=== PATIENT | female | born 1970 | race Caucasian/White ===

== ENCOUNTER 2020-12-03 02:34 | Emergency (ER) | payer OTHER ==
[2020-12-03 02:44] VITALS: RESP 17; TEMP 98.7
[2020-12-03] MEDS ORDERED: SODIUM CHLORIDE 0.9% 500 ML 500 ML IV STA (02:47)
[2020-12-03] MEDS ORDERED: SODIUM CHLORIDE 0.9% 1,000 ML IV STA ×2 (02:47)
[2020-12-03] MEDS ORDERED: ONDANSETRON 4 MG/2 ML VIAL IVP STA (02:47)
--- NOTE | 2020-12-03 02:48 | ED ---
Chest Pain HPI - General Chief Complaint: Chest Pain Stated Complaint: Chest Pain Time Seen by Provider: 12/03/20 02:36 Source: patient, EMS Mode of arrival: EMS Limitations: no limitations - Related Data Home Medications Medication Instructions Recorded Confirmed Ibuprofen [Motrin] 400 mg PO Q6HR PRN 07/20/15 01/31/16 Acetaminophen Tab [Tylenol Tab] 1,000 mg PO Q6HR PRN 01/31/16 01/31/16 Previous Rx's Medication Instructions Recorded Cyclobenzaprine [Flexeril] 10 mg PO TID #20 tab 01/31/16 Ibuprofen [Motrin] 600 mg PO Q6HR PRN #20 tab 01/31/16 Allergies Allergy/AdvReac Type Severity Reaction Status Date / Time sulfamethoxazole Allergy Itching Verified 01/31/16 13:58 [From Bactrim] trimethoprim [From Bactrim] Allergy Itching Verified 01/31/16 13:58 Review of Systems ROS Statement: Those systems with pertinent positive or pertinent negative responses have been documented in the HPI. ROS Other: All systems not noted in ROS Statement are negative. EKG Findings - EKG Comments: EKG Findings:: EKG is sinus tachycardia 102 PA 138 QRS 84 QTc 495 Past Medical History Additional Past Medical History / Comment(s): cellulitis History of Any Multi-Drug Resistant Organisms: None Reported Past Surgical History: Cholecystectomy Additional Past Surgical History / Comment(s): exploratory-abdomen Past Psychological History: ADD/ADHD, Bipolar, Depression Smoking Status: Current every day smoker Past Alcohol Use History: Abuse, Daily Past Drug Use History: Marijuana General Exam Limitations: no limitations Course Vital Signs 12/03/20 12/03/20 02:38 03:03 Temperature 98.7 F Pulse Rate 104 H 98 Respiratory 17 17 Rate Blood Pressure 87/63 111/76 O2 Sat by Pulse 95 97 Oximetry Disposition Clinical Impression: Postoperative pain, Atypical chest pain Disposition: HOME SELF-CARE Condition: Good Instructions (If sedation given, give patient instructions): Chest Pain (ED) Is patient prescribed a controlled substance at d/c from ED?: No Referrals: Minh Davidson MD [Primary Care Provider] - 1-2 days Jyoti Domínguez DO [Doctor of Osteopathic Medicine] - 1-2 days
[2020-12-03] MEDS ORDERED: HYDROmorphone 1 MG/ML 1 ML SYRINGE IVP STA (02:52)
[2020-12-03 03:23] LABS: Basophils % (A) 0 %; Eosinophils % (A) 0 %; HCT 32.4 % (34.0-46.0); HGB 11.1 gm/dL (11.4-16.0); Lymphocytes # (A) 1.4 k/uL (1.0-4.8); Lymphocytes % (A) 13 %; MCH 32.4 pg (25.0-35.0); MCHC 34.2 g/dL (31.0-37.0); MCV 94.6 fL (80.0-100.0); Mean Platelet Volume 6.8; Monocytes # (A) 0.8 k/uL (0-1.0); Monocytes % (A) 7 %; Neutrophils # (A) 8.1 k/uL (1.3-7.7); Neutrophils % (A) 77 %; Platelet Count 492 k/uL (150-450); RBC 3.42 m/uL (3.80-5.40); RDW 13.8 % (11.5-15.5); WBC 10.5 k/uL (3.8-10.6)
[2020-12-03 03:41] LABS: ALT 15 U/L (4-34); AST 27 U/L (14-36); African American GFR (CKD) >90 (>60 ml/min/1.73 sqM); Albumin 3.6 g/dL (3.5-5.0); Alcohol <10 mg/dL; Alkaline Phosphatase 89 U/L (38-126); Anion Gap 5 mmol/L; Blood Urea Nitrogen 15 mg/dL (7-17); Calcium 8.9 mg/dL (8.4-10.2); Carbon Dioxide 26 mmol/L (22-30); Chloride 102 mmol/L (98-107); Creatine Kinase 35 U/L (30-135); Glucose 95 mg/dL (74-99); Lipase 69 U/L (23-300); Magnesium 1.7 mg/dL (1.6-2.3); Non-African American GFR(CKD) >90 (>60 ml/min/1.73 sqM); Potassium 4.2 mmol/L (3.5-5.1); Sodium 133 mmol/L (137-145); Total Bilirubin 0.5 mg/dL (0.2-1.3); Total Protein 6.5 g/dL (6.3-8.2)
--- NOTE | 2020-12-03 03:50 | CT ---
EXAMINATION TYPE: CT angio chest DATE OF EXAM: 12/03/2020 COMPARISON: None HISTORY: Chest pain CT DLP: 864.1 mGycm Automated exposure control for dose reduction was used. CONTRAST: Performed with IV Contrast, patient injected with 100 mL of Isovue 370. Images obtained from the thoracic inlet to the diaphragm with IV contrast. There are 3-D post process ed images. There is mild subsegmental atelectasis at the lung bases. Heart size is normal. There is no pericardi al effusion. There is no pleural effusion. There is no evidence of a pulmonary mass. There is no mediastinal adenopathy. There are no hilar masses. There is normal contrast opacification of the thoracic aorta. There is no aneurysm or dissection. There is normal contrast opacification of the pulmonary arteries. There are no filling defects. The t horacic vertebra have normal spacing and alignment. Posterior elements are intact. Sternum is intact. Upper abdominal soft tissues are intact. IMPRESSION: Mild subsegmental atelectasis at the lung bases. No evidence of pulmonary embolism.
[2020-12-03 03:55] LABS: INR 0.9 (<1.2); Partial Thromboplastin Time 23.6 sec (22.0-30.0); Prothrombin Time 9.9 sec (9.0-12.0)
--- NOTE | 2020-12-03 04:05 | CT ---
EXAMINATION TYPE: CT abdomen pelvis w con DATE OF EXAM: 12/03/2020 COMPARISON: None. Images obtained from the diaphragm to the floor the pelvis with IV contrast. HISTORY: Chest pain CT DLP: 864.1 mGycm Automated exposure control for dose reduction was used. CONTRAST: Performed with IV Contrast, patient injected with 100 mL of Isovue 370. There is mild subsegmental atelectasis at the lung bases. Heart size is normal. There is no pericardi al effusion. Liver spleen stomach pancreas appear intact. Liver is large and measures 20 cm in length. Bile ducts are not dilated. There are clips from cholecystectomy. There is irregular 4 x 3 cm fluid collection a t the cholecystectomy site. There is no adrenal mass. Kidneys show satisfactory contrast opacification. There is no hydronephrosi s. Delayed images show normal renal excretion. There is no retroperitoneal adenopathy. Bladder disten ds smoothly. There is no inguinal hernia. There is no free fluid in the pelvis. Uterus is anteverted. Small bowel pattern is normal. Appendix is inferior and appears normal. There is no mesenteric edema. There is no ascites or free air. There is no bowel obstruction. The str uctures appear intact. There is no compression fracture. Bony pelvis and hip joints appear normal. Sa croiliac joints are normal. IMPRESSION: Mild subsegmental atelectasis at the lung bases. Hepatomegaly. There is some mixed density fluid accumulation at the cholecystectomy site. This has in termediate and low attenuation. No other fluid accumulation. Clinical significance is not clear. This could be a pseudocyst or bile leak or hematoma. According to the history patient had cholecystectomy one week ago. No significant fat stranding seen in the region to suggest an abscess.
[2020-12-03] MEDS ORDERED: LORazepam 2 MG/ML INJ IV STA (04:57)
[2020-12-03 05:03] VITALS: BP 104/67; PULSE 78
== END 2020-12-03 05:18 | disposition home or self-care (01) ==
LOC: EC 02:34
DX: R07.89 Other chest pain (principal); G89.18 Other acute postprocedural pain; F31.9 Bipolar disorder, unspecified; F90.9 Attention-deficit hyperactivity disorder, unspecified type; F17.200 Nicotine dependence, unspecified, uncomplicated; F12.90 Cannabis use, unspecified, uncomplicated; Z88.1 Allergy status to other antibiotic agents; Z88.2 Allergy status to sulfonamides; Z90.49 Acquired absence of other specified parts of digestive tract
CPT/HCPCS: 99285; 96374; 96375 ×2; 96361 ×2; 36415; 93005; 85379; 83880; 80053; 82550; 83690; 83735; 84484; 85025; 85610; 85730; 71275; 74177; G0480; J2060; J2405; J1170; Q9967; 80320

== ENCOUNTER → 2023-07-24 | Outpatient (CLI) | payer OTHER ==
[2023-07-24 15:49] LABS: Basophils # (A) 0.03 X 10*3/uL (0.00-0.10); Basophils % (A) 0.6 %; Eosinophils # (A) 0.01 X 10*3/uL (0.04-0.35); Eosinophils % (A) 0.2 %; HCT 38.1 % (37.2-46.3); HGB 12.8 g/dL (12.0-15.0); Lymphocytes # (A) 1.79 X 10*3/uL (0.90-5.00); Lymphocytes % (A) 34.4 %; MCH 30.4 pg (27.0-32.0); MCHC 33.6 g/dL (32.0-37.0); MCV 90.5 FL (80.0-97.0); Mean Platelet Volume 9.9 FL (9.5-12.2); Monocytes # (A) 0.49 X 10*3/uL (0.20-1.00); Monocytes % (A) 9.4 %; NRBC Per 100 WBC 0 X 10*3/uL (0.00-0.01); Neutrophils # (A) 2.87 X 10*3/uL (1.80-7.70); Platelet Count 308 X 10*3/uL (140-440); RBC 4.21 X 10*6/uL (4.10-5.20); RDW 12.9 % (11.5-14.5); WBC 5.21 X 10*3/uL (4.50-10.00)
[2023-07-24 15:58] LABS: BUN/Creat Ratio 17.25 Ratio (12.00-20.00); Blood Urea Nitrogen 13.8 mg/dL (9.0-27.0); Calcium 10.2 mg/dL (8.7-10.3); Carbon Dioxide 25.7 mmol/L (21.6-31.8); Chloride 101 mmol/L (96-109); Glucose 97 mg/dL (70-110); Potassium 4.4 mmol/L (3.5-5.5); Sodium 139 mmol/L (135-145)
== END | disposition home or self-care (01) ==
LOC: LABPAT 10:29
PROVIDERS: ATTEND Orthopaedic Surgery Hand Surgery
DX: Z01.812 Encounter for preprocedural laboratory examination (principal); S52.571A Other intraarticular fracture of lower end of right radius, initial encounter for closed fracture
CPT/HCPCS: 36415; 80048; 85025

== ENCOUNTER 2023-07-26 08:25 | Day surgery (SDC) | payer OTHER ==
[2023-07-24 13:29] VITALS: BMI 19.7
--- NOTE | 2023-07-24 20:44 | P.HPOR ---
History of Present Illness H&P Date: 07/24/23 Subjective: This is a 53 year old female that presents today for initial evaluation regarding a right wrist injury that occurred on July 15, 2023 when she slipped on wet floor in her kitchen and fell onto an outstretched hand. She was seen at [facility] where x-rays were taken and she was placed in a splint which she has been in since the injury. She is right hand dominant and denies any prior injury to this wrist in the past. Physical Examination: RUE: AIN/PIN/Radial/Ulnar/Median motor intact. Radial/Ulnar/Median SILT. 2+/4 Radial/Ulnar pulses palpated. 5/5 APB, 5/5 FDI. TTP over distal radius, range of motion limited due to pain. Imaging: X-Rays of the right wrist 3V taken in office today demonstrate an intra- articular distal radius fracture with 30 degrees of dorsal angulation Impression: 1.)Right distal radius fracture, intra-articular. Plan: Diagnosis and treatment options were discussed with the patient. I recommend surgical intervention in the form of a right distal radius ORIF due to the residual dorsal angulation and displacement seen on imaging today, she is agreeable. Risks and benefits of surgery including bleeding, infection, damage to surrounding tissue, need for further surgery, residual numbness were discussed and the patient wished to go forward with surgery. The patient was agreeable with this plan. CC: Minh Davidson MD -Kenji Blunt DO Orthopedic Hand/Upper Extremity Surgeon Past Medical History Past Medical History: COPD Additional Past Medical History / Comment(s): ENLARGED LIVER, ANEMIA History of Any Multi-Drug Resistant Organisms: None Reported Past Surgical History: Cholecystectomy Additional Past Surgical History / Comment(s): exploratory lap-abdomen Past Anesthesia/Blood Transfusion Reactions: No Reported Reaction Additional Past Anesthesia/Blood Transfusion Reaction / Comment(s): pt is very anxious and tearful regarding getting anesthesia Past Psychological History: ADD/ADHD, Anxiety, Bipolar, Depression Smoking Status: Current every day smoker Past Alcohol Use History: Occasional Past Drug Use History: Marijuana Additional Drug Use History / Comment(s): recovering cocaine user - Past Family History Mother Family Medical History: No Reported History Medications and Allergies Home Medications Medication Instructions Recorded Confirmed Type Acetaminophen-Codeine 300-30mg 1 - 2 tab PO Q4-6H PRN 07/24/23 07/24/23 History [Tylenol w/codeine #3] Albuterol Inhaler [Ventolin Hfa 1 - 2 puff INHALATION Q6H PRN 07/24/23 07/24/23 History Inhaler] Budesonide-Formot 160-4.5 Mcg 2 puff INHALATION BID 07/24/23 07/24/23 History [Symbicort 160-4.5 Mcg Inhaler] Buprenorphine HCl/Naloxone HCl 1 each SL TID PRN 07/24/23 07/24/23 History [Suboxone 4 mg-1 mg Sl Film] Cyclobenzaprine [Flexeril] 10 mg PO TID PRN 07/24/23 07/24/23 History Famotidine [Pepcid AC] 10 mg PO DAILY 07/24/23 07/24/23 History LORazepam [Ativan] 2 mg PO TID PRN 07/24/23 07/24/23 History Allergies Allergy/AdvReac Type Severity Reaction Status Date / Time sulfamethoxazole Allergy Itching Verified 07/24/23 12:39 [From Bactrim] trimethoprim [From Bactrim] Allergy Itching Verified 07/24/23 12:39 Physical Examination Osteopathic Statement: *. No significant issues noted on an osteopathic structural exam other than those noted in the History and Physical/Consult.
[~2023-07-26 08:25] MED LIST: HYDROmorphone 0.5 MG/0.5 ML SYRINGE IVP PRN; LIDOCAINE 1% (10MG/ML) FOR IV START INTRADERMA PRN; SCOPOLAMINE 1 MG/72 HR PATCH TRANSDERM ONE
[2023-07-26] MEDS: LACTATED RINGERS 1,000 ML IV SCH (09:06)
[2023-07-26] MEDS: ONDANSETRON 4 MG/2 ML VIAL IVP ONE ×2 (09:30→11:53)
[2023-07-26] MEDS: DEXAMETHASONE SOD PHOSPHATE 4 MG/ML 1 ML VIAL IV ONE (09:30)
[2023-07-26] MEDS: MIDAZOLAM 2 MG/2 ML VIAL IVP ONE (09:38)
[2023-07-26] MEDS: fentaNYL (PF) 50 MCG/ML 2 ML AMP IVP ONE (09:38)
[2023-07-26] MEDS: diphenhydrAMINE 50 MG/ML 1 ML VIAL ONE (09:40)
--- NOTE | 2023-07-26 09:57 | P.ANPRN ---
Procedure Note - Anesthesia - Nerve Block Performed Right Supraclavicular Single Time Out Performed: Yes Date of Procedure: 07/26/23 Procedure Start Time: Procedure Stop Time: Location of Patient: PreOp Indication: Acute Post-Operative Pain, Analgesia, Requested by Surgeon Sedation Type: Sedate with meaningful contact maintained Preparation: Sterile Prep Position: Sitting Catheter: None Needle Types: Pajunk Needle Gauge: 21 Ultrasound used to visualize needle placement: Yes Ultrasound used to observe medication spread: Yes Injectate: 0.5% Ropivacaine (see comment for volume) (Ropiv 20 ml+decadron 4mg) Blood Aspirated: No Pain Paresthesia on Injection Noted: No Resistance on Injection: Normal Image Stored and Saved: Yes Events: Uneventful and Well Tolerated
[2023-07-26 10:14] VITALS: TEMP 98.2
[2023-07-26] MEDS ORDERED: MIDAZOLAM 2 MG/2 ML VIAL ONE (10:17)
[2023-07-26] MEDS ORDERED: DEXAMETHASONE SOD PHOSPHATE 4 MG/ML 1 ML VIAL ONE (10:17)
[2023-07-26] MEDS ORDERED: KETAMINE HCL IN 0.9 % NACL 50 MG/5 ML SYRINGE ONE (10:17)
[2023-07-26] MEDS ORDERED: fentaNYL (PF) 50 MCG/ML 2 ML AMP ONE (10:17)
[2023-07-26] MEDS ORDERED: ROPIVACAINE 5 MG/ML 30 ML VIAL ONE (10:17)
[2023-07-26] MEDS ORDERED: PROPOFOL 10 MG/ML 20 ML VIAL IV ONE (10:17)
[2023-07-26] MEDS ORDERED: ONDANSETRON 4 MG/2 ML VIAL ONE (11:47)
--- NOTE | 2023-07-26 11:48 | P.OP ---
Date of Procedure: 07/26/23 Preoperative Diagnosis: Right intra-articular distal radius fracture Postoperative Diagnosis: Right intra-articular distal radius fracture Procedure(s) Performed: Open reduction internal fixation of right intra-articular distal radius fracture, 3 parts. Implants: Styrker Variax 2 distal radius plate, short, narrow. Anesthesia: [facility] Surgeon: Kenji Blunt Estimated Blood Loss (ml): 10 Pathology: none sent Condition: stable Disposition: PACU Description of Procedure: This is a 53 year old female who sustained a displaced intra-articular distal radius fracture and presents today for open reduction internal fixation of their right distal radius fracture. Risks and benefits of surgery were discussed with the patient including bleeding, damage to surrounding tissue, infection, need for further surgery as well as risks of anesthesia including pulmonary embolism and even and the patient wished to proceed with surgical intervention. The patients was seen in the pre-operative area by myself. Consent and H&P were completed and updated. The correct extremity was marked in the pre-operative area by myself and all other questions were answered. Operative Narrative: The patient was brought to the operating room by the department of anesthesia. They remained on the portable stretcher and a rolling hand table was brought to the side of the operative extremity. Pre-operative time out was performed indicating the correct patient, procedure and laterality. All in the room agreed. Pre-operative antibiotics were given prior to skin incision. The patient was then drifted off to sleep by the department of anesthesia. A nonsterile tourniquet was then applied to the operative extremity and the right upper extremity was then prepped and draped in normal sterile fashion. The operative extremity was the exsanguinated with an esmarch bandage and the tourniquet was inflated to 250mmHg. A longitudinal incision centered over the FCR tendon was made with a 15-blade scalpel. Blunt dissection was taken down to the FCR tendon sheath using Bovie cautery for meticulous hemostasis. The FCR sheath was opened with tenotomy scissors. The floor of the FCR sheath was then incised with a 15-blade scalpel and the FPL tendon and muscle belly was swept bluntly in an ulnar direction to reveal the pronator quadratus. Pronator quadratus was sharply incised with a 15-blade scalpel along the radial border of the distal radius, coming across transversely parallel to the joint at the level of the watershed line, radial artery was identified and protected. Periosteal elevator was then used to elevate the pronator quadratus off the distal radius from a radial to ulnar fashion. A [place] elevator was used to lever the distal piece back into place and free up the fractured fragments. A narrow width 3 hole Shabana Variax 2 titanium volar locking distal radius plate was chosen to fit the patients anatomy best. This was placed on the distal radius under direct visualization and the oblong hole was drilled and filled with a non-locking screw. The fracture was then reduced to the plate distally and a k-wire was placed in the ulnar most k-wire hole in the proximal row. Fluoroscopy was then utilized to confirm correct placement of plate in the radial/ulnar plane and distal k-wire placement was confirmed to be proximal to the subchondral bone on 20 degree elevated lateral view confirming extra-articular screw placement. Religion of radial height, inclination and volar tilt was achieved. The distal rows and radial styloid screw holes were then drilled and filled from ulnar to radial with locking screws. Attention was then brought to the proximal shaft screws. Proximal nonlocking and locking shaft screws were drilled, measured, and filled. The wrist joint was the ranged and full smooth flexion/extension with no crepitus appreciated. Final imaging was taken confirming extra-articular placement of distal screws at DRUJ and radiocarpal joint. The wound was then irrigated. Subcutaneous closure was performed with 4-0 monocryl followed by skin closure with 4-0 monocryl suture and steri strips. Sterile dressing consisting of adaptic, 4x4s, and a volar plaster splint was applied. Tourniquet was let down and the hand had immediate perfusion. The patient was then woken by the department of anesthesia and transferred to PACU in stable condition. Kenji Blunt D.O. Orthopedic Hand/Upper Extremity Surgeon
[2023-07-26 12:11] VITALS: BP 123/76; PULSE 91; RESP 19
== END 2023-07-26 12:11 | disposition home or self-care (01) ==
LOC: OR 08:25
PROVIDERS: ATTEND Orthopaedic Surgery Hand Surgery
DX: S52.571A Other intraarticular fracture of lower end of right radius, initial encounter for closed fracture (principal); F41.9 Anxiety disorder, unspecified; G89.18 Other acute postprocedural pain; J44.9 Chronic obstructive pulmonary disease, unspecified; F31.9 Bipolar disorder, unspecified; F17.200 Nicotine dependence, unspecified, uncomplicated; Z79.899 Other long term (current) drug therapy; Z79.51 Long term (current) use of inhaled steroids; Z88.1 Allergy status to other antibiotic agents; Z88.2 Allergy status to sulfonamides; Z90.49 Acquired absence of other specified parts of digestive tract; W01.0XXA Fall on same level from slipping, tripping and stumbling without subsequent striking against object, initial encounter
CPT/HCPCS: 64415; 25609; C1713; J2250; J1200; J1100; J0690; J2405; J3010; J2795; J2704

== ENCOUNTER → 2023-10-05 | Outpatient (CLI) | payer OTHER ==
--- NOTE | 2023-10-05 09:28 | FL ---
ESOPHOGRAM. HISTORY: Dysphagia Esophagram was performed per the air contrast technique. The patient swallowed barium and effervesce nt crystals without difficulty or delay. Esophageal peristalsis and motility appear to be within normal limits. There is no evidence for filling defect, mass or diverticulum. No hiatal hernia seen. Subsequently single contrast cervical esophagram was performed which fails demonstrate evidence for a spiration penetration or mass. Mild hypertrophy of the cricopharyngeus musculature at the C5-6 level. IMPRESSION: Mild hypertrophy of the cricopharyngeus musculature at the C5-6 level.
== END | disposition home or self-care (01) ==
LOC: RADUSWWP 07:50
PROVIDERS: ATTEND Family Medicine
DX: R13.10 Dysphagia, unspecified (principal); M47.812 Spondylosis without myelopathy or radiculopathy, cervical region
CPT/HCPCS: 74220

== ENCOUNTER 2024-01-08 09:41 | Emergency (ER) | payer OTHER ==
--- NOTE | 2024-01-08 10:24 | ED ---
General Adult HPI - General Chief complaint: ENT Stated complaint: tongue pain Time Seen by Provider: 01/08/24 10:00 Source: patient, RN notes reviewed Mode of arrival: ambulatory Limitations: no limitations - History of Present Illness Initial comments: Patient is a 53-year-old female presenting to the emergency department with concern for tongue pain. Symptoms have been present for a couple of months. Patient states discomfort is becoming severe and increases with oral intake. Patient has also had some left ear pain recently. Patient also has had some left-sided kidney pain recently which she has had several times previously. Patient has tried Magic mouthwash and Levaquin without improvement of symptoms. - Related Data Home Medications Medication Instructions Recorded Confirmed Acetaminophen-Codeine 300-30mg 1 - 2 tab PO Q4-6H PRN 07/24/23 07/26/23 [Tylenol w/codeine #3] Albuterol Inhaler [Ventolin Hfa 1 - 2 puff INHALATION Q6H PRN 07/24/23 07/26/23 Inhaler] Budesonide-Formot 160-4.5 Mcg 2 puff INHALATION BID 07/24/23 07/26/23 [Symbicort 160-4.5 Mcg Inhaler] Buprenorphine HCl/Naloxone HCl 1 each SL TID PRN 07/24/23 07/26/23 [Suboxone 4 mg-1 mg Sl Film] Cyclobenzaprine [Flexeril] 10 mg PO TID PRN 07/24/23 07/26/23 Famotidine [Pepcid AC] 10 mg PO DAILY 07/24/23 07/26/23 LORazepam [Ativan] 2 mg PO TID PRN 07/24/23 07/26/23 Previous Rx's Medication Instructions Recorded Nystatin 100,000 Unit/ml Susp 5 ml PO QID #200 ml 01/08/24 [Mycostatin Oral Susp] Allergies Allergy/AdvReac Type Severity Reaction Status Date / Time sulfamethoxazole Allergy Itching Verified 01/08/24 09:45 [From Bactrim] trimethoprim [From Bactrim] Allergy Itching Verified 01/08/24 09:45 Review of Systems ROS Statement: Those systems with pertinent positive or pertinent negative responses have been documented in the HPI. ROS Other: All systems not noted in ROS Statement are negative. Constitutional: Denies: fever Eyes: Denies: eye pain ENT: Reports: as per HPI, ear pain. Denies: dental pain, hearing loss, epistaxis Respiratory: Denies: dyspnea Cardiovascular: Denies: chest pain Gastrointestinal: Denies: abdominal pain Past Medical History Past Medical History: COPD, GERD/Reflux Additional Past Medical History / Comment(s): cellulitis History of Any Multi-Drug Resistant Organisms: None Reported Past Surgical History: Cholecystectomy Additional Past Surgical History / Comment(s): exploratory-abdomen Past Psychological History: ADD/ADHD, Bipolar, Depression Smoking Status: Current every day smoker, Light tobacco smoker Past Alcohol Use History: Rare Past Drug Use History: Marijuana General Exam Limitations: no limitations General appearance: alert, in no apparent distress Head exam: Present: normocephalic Eye exam: Present: normal appearance ENT exam: Present: TM's normal bilaterally, other (Tongue appears to have deep grooves anterior middle otherwise unremarkable. No mastoid tenderness or swelling.) Neck exam: Present: normal inspection. Absent: tenderness, lymphadenopathy Respiratory exam: Present: normal lung sounds bilaterally Cardiovascular Exam: Present: regular rate, normal rhythm GI/Abdominal exam: Present: soft, normal bowel sounds. Absent: distended, tenderness, guarding, rebound, rigid, pulsatile mass Extremities exam: Present: normal inspection Back exam: Present: CVA tenderness (L) (mild) Neurological exam: Present: alert, oriented X3, CN II-XII intact. Absent: motor sensory deficit Psychiatric exam: Present: normal affect, normal mood Skin exam: Present: normal color Course Vital Signs 01/08/24 01/08/24 09:45 11:49 Temperature 98.5 F 98 F Pulse Rate 105 H 64 Respiratory 18 18 Rate Blood Pressure 131/79 121/77 O2 Sat by Pulse 97 100 Oximetry Medical Decision Making - Medical Decision Making Was pt. sent in by a medical professional or institution (, PA, ONLINE MERCHANT, urgent care, hospital, or long-term...) When possible be specific @ -No Did you speak to anyone other than the patient for history (EMS, parent, family, police, friend...)? What history was obtained from this source @ -No Did you review nursing and triage notes (agree or disagree)? Why? @ -I reviewed and agree with nursing and triage notes Were old charts reviewed (outside hosp., previous admission, EMS record, old EKG, old radiological studies, urgent care reports/EKG's, long-term records)? Report findings @ -No old charts were reviewed Differential Diagnosis (chest pain, altered mental status, abdominal pain women, abdominal pain men, vaginal bleeding, weakness, fever, dyspnea, syncope, headache, dizziness, GI bleed, back pain, seizure, CVA, palpatations, mental health, musculoskeletal)? @ -Differential Abdominal Pain Women: Appendicitis, Cholecystitis, diverticulosis, ischemic bowel, pancreatitis, hepatitis, UTI, gastroenteritis, AAA, incarcerated hernia, bowel obstruction, constipation, inflammatory bowel, hepatitis, peptic ulcer disease, splenic infarction, perforated viscus, vulvitis, ovarian torsion, PID, kidney stone, placenta abruption, this is not meant to be an all-inclusive list EKG interpreted by me (3pts min.). @ -As above X-rays interpreted by me (1pt min.). @ -KUB shows no acute abnormality CT interpreted by me (1pt min.). @ -CT soft tissue neck including up to the ear does not reveal acute abnormality U/S interpreted by me (1pt. min.). @ -Ultrasound the kidneys without acute abnormality What testing was considered but not performed or refused? (CT, X-rays, U/S, labs)? Why? @ -None What meds were considered but not given or refused? Why? @ -None Did you discuss the management of the patient with other professionals (professionals i.e. , PA, ONLINE MERCHANT, lab, RT, psych nurse, social work associate, chief lock operator, teacher, safety officer, watch case polisher)? Give summary @ -No Was smoking cessation discussed for >3mins.? @ -No Was critical care preformed (if so, how long)? @ -No Were there social determinants of health that impacted care today? How? (Homelessness, low income, unemployed, alcoholism, drug addiction, transportation, low edu. Level, literacy, decrease access to med. care, correction, rehab)? @ -No Was there de-escalation of care discussed even if they declined (Discuss DNR or withdrawal of care, Hospice)? DNR status @ -No What co-morbidities impacted this encounter? (DM, HTN, Smoking, COPD, CAD, Cancer, CVA, ARF, Chemo, Hep., AIDS, mental health diagnosis, sleep apnea, morbid obesity)? @ -None Was patient admitted / discharged? Hospital course, mention meds given and route, prescriptions, significant lab abnormalities, going to OR and other pertinent info. @ -Patient presents with complaints of tongue pain with unclear etiology. No obvious reason on evaluation or exam. Patient will be discharged with close recommended follow-up with primary care physician and ENT. Patient updated. Patient will be tried and course of antifungals for potential fungal infection Undiagnosed new problem with uncertain prognosis? @ -Tongue pain of unclear etiology and uncertain prognosis Drug Therapy requiring intensive monitoring for toxicity (Heparin, Nitro, Insulin, Cardizem)? @ -No Were any procedures done? @ -No Diagnosis/symptom? @ -Tongue pain Acute, or Chronic, or Acute on Chronic? @ -Acute Uncomplicated (without systemic symptoms) or Complicated (systemic symptoms)? @ -Default Side effects of treatment? @ -No Exacerbation, Progression, or Severe Exacerbation? @ -No Poses a threat to life or bodily function? How? (Chest pain, [place], [place], pneumonia, PE, COPD, DKA, ARF, appy, cholecystitis, CVA, Diverticulitis, Homicidal, Suicidal, threat to staff... and all critical care pts) @ -No - Lab Data Result diagrams: 01/08/24 10:31 01/08/24 10:31 Lab Results 01/08/24 01/08/24 01/08/24 Range/Units 10:31 10:31 10:31 WBC 6.9 (3.8-10.6) k/uL RBC 4.48 (3.80-5.40) m/uL Hgb 13.5 (11.4-16.0) gm/dL Hct 41.4 (34.0-46.0) % MCV 92.4 (80.0-100.0) fL MCH 30.3 (25.0-35.0) pg MCHC 32.7 (31.0-37.0) g/dL RDW 13.3 (11.5-15.5) % Plt Count 313 (150-450) k/uL MPV 7.9 Neutrophils % 70 % Lymphocytes % 22 % Monocytes % 5 % Eosinophils % 1 % Basophils % 0 % Neutrophils # 4.8 (1.3-7.7) k/uL Lymphocytes # 1.5 (1.0-4.8) k/uL Monocytes # 0.3 (0-1.0) k/uL Eosinophils # 0.1 (0-0.7) k/uL Basophils # 0.0 (0-0.2) k/uL PT 10.6 (10.0-12.5) sec INR 1.0 (<1.2) APTT 24.2 (22.0-30.0) sec Sodium (137-145) mmol/L Potassium (3.5-5.1) mmol/L Chloride (98-107) mmol/L Carbon Dioxide (22-30) mmol/L Anion Gap mmol/L BUN (7-17) mg/dL Creatinine (0.52-1.04) mg/dL Est GFR (CKD-EPI)AfAm (>60 ml/min/1.73 sqM) Est GFR (CKD-EPI)NonAf (>60 ml/min/1.73 sqM) Glucose (74-99) mg/dL Calcium (8.4-10.2) mg/dL Total Bilirubin (0.2-1.3) mg/dL AST (14-36) U/L ALT (4-34) U/L Alkaline Phosphatase (38-126) U/L Total Protein (6.3-8.2) g/dL Albumin (3.5-5.0) g/dL Amylase (30-110) U/L Lipase (23-300) U/L Urine Color Colorless Urine Appearance Clear (Clear) Urine pH 6.5 (5.0-8.0) Ur Specific Alexander 1.005 (1.001-1.035) Urine Protein Negative (Negative) Urine Glucose (UA) Negative (Negative) Urine Ketones Negative (Negative) Urine Blood Negative (Negative) Urine Nitrite Negative (Negative) Urine Bilirubin Negative (Negative) Urine Urobilinogen <2.0 (<2.0) mg/dL Ur Leukocyte Esterase Negative (Negative) 01/08/24 Range/Units 10:31 WBC (3.8-10.6) k/uL RBC (3.80-5.40) m/uL Hgb (11.4-16.0) gm/dL Hct (34.0-46.0) % MCV (80.0-100.0) fL MCH (25.0-35.0) pg MCHC (31.0-37.0) g/dL RDW (11.5-15.5) % Plt Count (150-450) k/uL MPV Neutrophils % % Lymphocytes % % Monocytes % % Eosinophils % % Basophils % % Neutrophils # (1.3-7.7) k/uL Lymphocytes # (1.0-4.8) k/uL Monocytes # (0-1.0) k/uL Eosinophils # (0-0.7) k/uL Basophils # (0-0.2) k/uL PT (10.0-12.5) sec INR (<1.2) APTT (22.0-30.0) sec Sodium 138 (137-145) mmol/L Potassium 4.6 (3.5-5.1) mmol/L Chloride 108 H (98-107) mmol/L Carbon Dioxide 28 (22-30) mmol/L Anion Gap 2 mmol/L BUN 16 (7-17) mg/dL Creatinine 0.72 (0.52-1.04) mg/dL Est GFR (CKD-EPI)AfAm >90 (>60 ml/min/1.73 sqM) Est GFR (CKD-EPI)NonAf >90 (>60 ml/min/1.73 sqM) Glucose 91 (74-99) mg/dL Calcium 9.7 (8.4-10.2) mg/dL Total Bilirubin 0.5 (0.2-1.3) mg/dL AST 20 (14-36) U/L ALT 10 (4-34) U/L Alkaline Phosphatase 54 (38-126) U/L Total Protein 7.3 (6.3-8.2) g/dL Albumin 4.5 (3.5-5.0) g/dL Amylase 52 (30-110) U/L Lipase 94 (23-300) U/L Urine Color Urine Appearance (Clear) Urine pH (5.0-8.0) Ur Specific Alexander (1.001-1.035) Urine Protein (Negative) Urine Glucose (UA) (Negative) Urine Ketones (Negative) Urine Blood (Negative) Urine Nitrite (Negative) Urine Bilirubin (Negative) Urine Urobilinogen (<2.0) mg/dL Ur Leukocyte Esterase (Negative) Disposition Clinical Impression: Tongue pain Disposition: HOME SELF-CARE Condition: Stable Instructions (If sedation given, give patient instructions): Earache (ED) Additional Instructions: Prescription sent to pharmacy. Please do follow-up with your primary care physician in the next couple of days for recheck. Please also follow-up with ENT in the next couple of days for recheck, numbers provided. Return for increased pain, unable to tolerate oral intake, fevers, swelling, worsening or changing symptoms or any other concerns Prescriptions: Nystatin 100,000 Unit/ml Susp [Mycostatin Oral Susp] 5 ml PO QID #200 ml Is patient prescribed a controlled substance at d/c from ED?: No Referrals: Minh Davidson MD [Primary Care Provider] - 1-2 days Time of Disposition: 12:38
[2024-01-08] MEDS: SODIUM CHLORIDE 0.9% 1,000 ML IV STA (10:36)
[2024-01-08 10:43] LABS: Basophils % (A) 0 %; Eosinophils # (A) 0.1 k/uL (0-0.7); Eosinophils % (A) 1 %; HCT 41.4 % (34.0-46.0); HGB 13.5 gm/dL (11.4-16.0); Lymphocytes # (A) 1.5 k/uL (1.0-4.8); Lymphocytes % (A) 22 %; MCH 30.3 pg (25.0-35.0); MCHC 32.7 g/dL (31.0-37.0); MCV 92.4 fL (80.0-100.0); Mean Platelet Volume 7.9; Monocytes # (A) 0.3 k/uL (0-1.0); Monocytes % (A) 5 %; Neutrophils # (A) 4.8 k/uL (1.3-7.7); Neutrophils % (A) 70 %; Platelet Count 313 k/uL (150-450); RBC 4.48 m/uL (3.80-5.40); RDW 13.3 % (11.5-15.5); WBC 6.9 k/uL (3.8-10.6)
[2024-01-08] MEDS: LORazepam 2 MG/ML INJ IV STA (10:57)
[2024-01-08] MEDS: KETOROLAC 15 MG/ML 1 ML VIAL IVP STA (10:59)
[2024-01-08 11:09] LABS: Partial Thromboplastin Time 24.2 sec (22.0-30.0); Prothrombin Time 10.6 sec (10.0-12.5)
--- NOTE | 2024-01-08 11:19 | XR ---
EXAMINATION TYPE: XR KUB DATE OF EXAM: 01/08/2024 COMPARISON: CT abdomen and pelvis 12/03/2020 HISTORY: Abdominal pain TECHNIQUE: Single upright KUB image of the abdomen is obtained FINDINGS: Small bowel demonstrates no evidence for dilatation or air fluid levels. Gas and fecal material is seen in non-distended colon. No convincing evidence for pneumoperitoneum. No unusual calcifications. Cholecystectomy clips in the right upper quadrant. The lung bases are clear. The osseous structures are intact. IMPRESSION: Overall nonobstructive bowel gas pattern. [facility], , 01/08/2024 11:17 AM
[2024-01-08 11:21] LABS: Appearance,Urine Clear (Clear); Bilirubin,Urine Negative (Negative); Blood,Urine Negative (Negative); Color,Urine Colorless; Glucose,Urine (UA) Negative (Negative); Ketones,Urine Negative (Negative); Leukocyte Esterase,Urine Negative (Negative); Nitrite,Urine Negative (Negative); PH, Urine 6.5 (5.0-8.0); Protein,Urine Negative (Negative); Specific Gravity,Urine 1.005 (1.001-1.035); Urobilinogen,Urine <2.0 mg/dL (<2.0)
[2024-01-08 11:29] LABS: ALT 10 U/L (4-34); AST 20 U/L (14-36); African American GFR (CKD) >90 (>60 ml/min/1.73 sqM); Albumin 4.5 g/dL (3.5-5.0); Alkaline Phosphatase 54 U/L (38-126); Amylase 52 U/L (30-110); Anion Gap 2 mmol/L; Blood Urea Nitrogen 16 mg/dL (7-17); Calcium 9.7 mg/dL (8.4-10.2); Carbon Dioxide 28 mmol/L (22-30); Chloride 108 mmol/L (98-107); Glucose 91 mg/dL (74-99); Lipase 94 U/L (23-300); Non-African American GFR(CKD) >90 (>60 ml/min/1.73 sqM); Potassium 4.6 mmol/L (3.5-5.1); Sodium 138 mmol/L (137-145); Total Bilirubin 0.5 mg/dL (0.2-1.3); Total Protein 7.3 g/dL (6.3-8.2)
--- NOTE | 2024-01-08 11:44 | CT ---
EXAMINATION TYPE: CT soft tissue neck w con CT DLP: 188.4 mGycm, Automated exposure control for dose reduction was used. DATE OF EXAM: 01/08/2024 11:34 AM COMPARISON: None. CLINICAL INDICATION:Female, 53 years old with history of tongue and ear pain; PHH, tongue and ear diane n TECHNIQUE: Standard enhanced CT of the neck following intravenous administration of 80 cc of Isovue 3 00. Axial sections with coronal and sagittal reformats were obtained. FINDINGS: Brain: Visualized portions are grossly unremarkable. Orbits: Unremarkable Sinuses: Grossly unremarkable. Suprahyoid Neck: The oropharynx, oral cavity, parapharyngeal and retropharyngeal spaces are clear and symmetric. The nasopharynx is unremarkable. Infrahyoid Neck: The larynx, hypopharynx, and supraglottic area are clear and symmetric. Parotid Glands: Unremarkable. Submandibular Glands: Unremarkable. Musculoskeletal: No acute osseous pathology. Degenerative disc disease identified at C5-C7 with disc space narrowing, endplate sclerosis, vacuum disc disease, and anterior osteophytosis. Lymph nodes: Few nonenlarged lymph nodes are seen along both anterior chains of the neck. Vascular structures: Visualized major arteries are patent without evidence of aneurysm. Thoracic Inlet/airway: Airway is patent. The lung apices are clear. Mild centrilobular emphysematous changes. Minimal biapical pleural-parenchymal scarring. Soft tissues/Thyroid: Thyroid and remainder of the soft tissues are unremarkable. Other: none. IMPRESSION 1. No CT evidence for significant abnormality. 2. Pulmonary emphysematous changes. [facility], , 01/08/2024 11:41 AM
[2024-01-08 11:50] VITALS: TEMP 98
--- NOTE | 2024-01-08 12:10 | US ---
EXAMINATION TYPE: US kidneys/renal and bladder DATE OF EXAM: 01/08/2024 COMPARISON: CT: 12/03/20 CLINICAL INDICATION: Female, 53 years old with history of pain; left flank pain TECHNIQUE: Grayscale imaging of the bilateral kidneys and urinary bladder: FINDINGS: EXAM MEASUREMENTS: Right Kidney: 10.3 x 4.4 x 3.2 cm Left Kidney: 9.6 x 4.6 x 4.0 cm Right Kidney: No hydronephrosis or masses seen Left Kidney: No hydronephrosis or masses seen Bladder: wnl Bilateral Jets seen: No There is no evidence for hydronephrosis at this point in time. No nephrolithiasis is seen. Cortical medullary differentiation is maintained bilaterally. No masses are identified. The urinary bladder is anechoic. Ureteral jets are not identified. IMPRESSION: No hydronephrosis or nephrolithiasis. [facility], , 01/08/2024 12:08 PM
[2024-01-08 12:51] VITALS: BP 107/78; PULSE 63; RESP 16
== END 2024-01-08 12:51 | disposition home or self-care (01) ==
LOC: EC 09:41
DX: K14.6 Glossodynia (principal); F17.200 Nicotine dependence, unspecified, uncomplicated; Z88.1 Allergy status to other antibiotic agents; Z88.2 Allergy status to sulfonamides
CPT/HCPCS: 36415; 80053; 82150; 83690; 85025; 85610; 85730; 81003; 74018; 76770; 70491; 99284; 96374; 96375; 96361; J2060; J1885; Q9967

== ENCOUNTER 2024-01-26 08:54 | Observation (INO) | payer OTHER ==
--- NOTE | 2024-01-26 09:44 | ED ---
General Adult HPI - General Chief complaint: Neuro Symptoms/Deficit Stated complaint: Facial numbness,L arm pain Time Seen by Provider: 01/26/24 09:04 Source: patient, RN notes reviewed Mode of arrival: wheelchair Limitations: no limitations - History of Present Illness Initial comments: Patient is a 53-year-old female present to the emergency department with concerns with problems with her tongue. Patient states this has been occurring for around 3 months. Patient has seen her doctor and has seen ENT and not received a diagnosis. Patient has difficulty eating and drinking and pain of her tongue. Patient states there is also pain on the entire left side of her body as well as somewhat the majority of her trunk. Symptoms are constant and persistent. Patient forgot to take her anxiety medication this morning. - Related Data Home Medications Medication Instructions Recorded Confirmed Acetaminophen-Codeine 300-30mg 1 - 2 tab PO Q4-6H PRN 07/24/23 07/26/23 [Tylenol w/codeine #3] Albuterol Inhaler [Ventolin Hfa 1 - 2 puff INHALATION Q6H PRN 07/24/23 07/26/23 Inhaler] Budesonide-Formot 160-4.5 Mcg 2 puff INHALATION BID 07/24/23 07/26/23 [Symbicort 160-4.5 Mcg Inhaler] Buprenorphine HCl/Naloxone HCl 1 each SL TID PRN 07/24/23 07/26/23 [Suboxone 4 mg-1 mg Sl Film] Cyclobenzaprine [Flexeril] 10 mg PO TID PRN 07/24/23 07/26/23 Famotidine [Pepcid AC] 10 mg PO DAILY 07/24/23 07/26/23 LORazepam [Ativan] 2 mg PO TID PRN 07/24/23 07/26/23 Previous Rx's Medication Instructions Recorded Nystatin 100,000 Unit/ml Susp 5 ml PO QID #200 ml 01/08/24 [Mycostatin Oral Susp] Allergies Allergy/AdvReac Type Severity Reaction Status Date / Time sulfamethoxazole Allergy Itching Verified 01/26/24 09:00 [From Bactrim] trimethoprim [From Bactrim] Allergy Itching Verified 01/26/24 09:00 Review of Systems ROS Statement: Those systems with pertinent positive or pertinent negative responses have been documented in the HPI. ROS Other: All systems not noted in ROS Statement are negative. Constitutional: Denies: fever Eyes: Denies: eye pain ENT: Reports: as per HPI. Denies: ear pain Respiratory: Denies: cough Musculoskeletal: Reports: as per HPI Psychiatric: Reports: anxiety Past Medical History Past Medical History: COPD, GERD/Reflux Additional Past Medical History / Comment(s): cellulitis History of Any Multi-Drug Resistant Organisms: None Reported Past Surgical History: Cholecystectomy Additional Past Surgical History / Comment(s): exploratory-abdomen Past Psychological History: ADD/ADHD, Bipolar, Depression Smoking Status: Current every day smoker, Light tobacco smoker Past Alcohol Use History: Rare Past Drug Use History: Marijuana General Exam Limitations: no limitations General appearance: alert, in no apparent distress Head exam: Present: normocephalic Eye exam: Present: normal appearance, PERRL, EOMI ENT exam: Present: normal exam, normal oropharynx Neck exam: Present: normal inspection. Absent: tenderness, meningismus Respiratory exam: Present: normal lung sounds bilaterally Cardiovascular Exam: Present: tachycardia GI/Abdominal exam: Present: soft. Absent: tenderness Extremities exam: Present: normal inspection Neurological exam: Present: alert, oriented X3, CN II-XII intact. Absent: motor sensory deficit Psychiatric exam: Present: anxious Skin exam: Present: normal color Course Vital Signs 01/26/24 01/26/24 01/26/24 09:00 09:29 10:10 Temperature 98.2 F Pulse Rate 111 H 106 H 79 Respiratory 20 18 20 Rate Blood Pressure 167/121 122/86 101/77 O2 Sat by Pulse 98 98 97 Oximetry 01/26/24 01/26/24 11:25 12:27 Temperature 98.2 F Pulse Rate 83 82 Respiratory 18 18 Rate Blood Pressure 108/68 96/72 O2 Sat by Pulse 95 97 Oximetry EKG Findings - EKG Results: EKG: interpreted by ERMD, sinus rhythm, normal axis, normal QRS, normal ST/T Medical Decision Making - Medical Decision Making Was pt. sent in by a medical professional or institution (, PA, CRANIOLOGIST, urgent care, hospital, or senior living...) When possible be specific @ -No Did you speak to anyone other than the patient for history (EMS, parent, family, police, friend...)? What history was obtained from this source @ -No Did you review nursing and triage notes (agree or disagree)? Why? @ -I reviewed and agree with nursing and triage notes Were old charts reviewed (outside hosp., previous admission, EMS record, old EKG, old radiological studies, urgent care reports/EKG's, senior living records)? Report findings @ -Previous visit and imaging reviewed Differential Diagnosis (chest pain, altered mental status, abdominal pain women, abdominal pain men, vaginal bleeding, weakness, fever, dyspnea, syncope, headache, dizziness, GI bleed, back pain, seizure, CVA, palpatations, mental health, musculoskeletal)? @ -Differential Weakness: Hypoglycemia, shock, sepsis, hyponatremia, anemia, infection, [place], ETOH, adverse medicine reaction, overdose, stroke, this is not meant to be an all-inclusive list. EKG interpreted by me (3pts min.). @ -As above X-rays interpreted by me (1pt min.). @ -None done CT interpreted by me (1pt min.). @ -None done U/S interpreted by me (1pt. min.). @ -None done What testing was considered but not performed or refused? (CT, X-rays, U/S, labs)? Why? @ -Considered imaging however patient did have this done previously What meds were considered but not given or refused? Why? @ -None Did you discuss the management of the patient with other professionals (professionals i.e. , PA, CRANIOLOGIST, lab, RT, psych nurse, social services counselor, mounter hand, teacher, delinquency prevention officer, casey saw operator)? Give summary @ -Patient is concerned that symptoms have been occurring for months and is not comfortable discharge home. I did discuss the case with Dr. Davidson who states he would admit the patient Was smoking cessation discussed for >3mins.? @ -No Was critical care preformed (if so, how long)? @ -No Were there social determinants of health that impacted care today? How? (Homelessness, low income, unemployed, alcoholism, drug addiction, transportation, low edu. Level, literacy, decrease access to med. care, senior living, rehab)? @ -No Was there de-escalation of care discussed even if they declined (Discuss DNR or withdrawal of care, Hospice)? DNR status @ -No What co-morbidities impacted this encounter? (DM, HTN, Smoking, COPD, CAD, Cancer, CVA, ARF, Chemo, Hep., AIDS, mental health diagnosis, sleep apnea, morbid obesity)? @ -None Was patient admitted / discharged? Hospital course, mention meds given and route, prescriptions, significant lab abnormalities, going to OR and other pertinent info. @ -Patient presents with tongue and some facial and other discomfort that has progressed over months. Patient will be admitted, admission orders written Undiagnosed new problem with uncertain prognosis? @ -Unclear diagnosis with uncertain prognosis Drug Therapy requiring intensive monitoring for toxicity (Heparin, Nitro, Insulin, Cardizem)? @ -No Were any procedures done? @ -No Diagnosis/symptom? @ -Facial pain Acute, or Chronic, or Acute on Chronic? @ -Acute Uncomplicated (without systemic symptoms) or Complicated (systemic symptoms)? @ -Default Side effects of treatment? @ -No Exacerbation, Progression, or Severe Exacerbation? @ -No Poses a threat to life or bodily function? How? (Chest pain, [place], [place], pneumonia, PE, COPD, DKA, ARF, appy, cholecystitis, CVA, Diverticulitis, Homicidal, Suicidal, threat to staff... and all critical care pts) @ -No - Lab Data Result diagrams: 01/26/24 09:44 01/26/24 09:44 Lab Results 01/26/24 01/26/24 01/26/24 Range/Units 09:44 09:44 09:44 WBC 7.8 (3.8-10.6) k/uL RBC 4.69 (3.80-5.40) m/uL Hgb 14.3 (11.4-16.0) gm/dL Hct 43.4 (34.0-46.0) % MCV 92.5 (80.0-100.0) fL MCH 30.5 (25.0-35.0) pg MCHC 32.9 (31.0-37.0) g/dL RDW 12.5 (11.5-15.5) % Plt Count 369 (150-450) k/uL MPV 7.8 Neutrophils % 73 % Lymphocytes % 19 % Monocytes % 5 % Eosinophils % 2 % Basophils % 0 % Neutrophils # 5.6 (1.3-7.7) k/uL Lymphocytes # 1.5 (1.0-4.8) k/uL Monocytes # 0.4 (0-1.0) k/uL Eosinophils # 0.1 (0-0.7) k/uL Basophils # 0.0 (0-0.2) k/uL Sodium 140 (137-145) mmol/L Potassium 4.5 (3.5-5.1) mmol/L Chloride 109 H (98-107) mmol/L Carbon Dioxide 23 (22-30) mmol/L Anion Gap 8 mmol/L BUN 11 (7-17) mg/dL Creatinine 0.68 (0.52-1.04) mg/dL Est GFR (CKD-EPI)AfAm >90 (>60 ml/min/1.73 sqM) Est GFR (CKD-EPI)NonAf >90 (>60 ml/min/1.73 sqM) Glucose 99 (74-99) mg/dL Calcium 10.3 H (8.4-10.2) mg/dL Magnesium 2.0 (1.6-2.3) mg/dL Total Bilirubin 0.6 (0.2-1.3) mg/dL AST 20 (14-36) U/L ALT 12 (4-34) U/L Alkaline Phosphatase 73 (38-126) U/L Troponin I <0.012 (0.000-0.034) ng/mL Total Protein 8.4 H (6.3-8.2) g/dL Albumin 5.2 H (3.5-5.0) g/dL Disposition Clinical Impression: Facial pain Disposition: ADMITTED IP TO THIS HOSP Is patient prescribed a controlled substance at d/c from ED?: No Referrals: Minh Davidson MD [Primary Care Provider] - 1-2 days Time of Disposition: 12:46
[2024-01-26] MEDS: SODIUM CHLORIDE 0.9% 1,000 ML IV STA (09:48)
[2024-01-26] MEDS: KETOROLAC 15 MG/ML 1 ML VIAL IVP STA (09:49)
[2024-01-26] MEDS: ONDANSETRON 4 MG/2 ML VIAL IVP STA (09:50)
[2024-01-26] MEDS: LORazepam 2 MG/ML INJ IV STA (09:52)
[2024-01-26 10:01] LABS: Basophils % (A) 0 %; Eosinophils # (A) 0.1 k/uL (0-0.7); Eosinophils % (A) 2 %; HCT 43.4 % (34.0-46.0); HGB 14.3 gm/dL (11.4-16.0); Lymphocytes # (A) 1.5 k/uL (1.0-4.8); Lymphocytes % (A) 19 %; MCH 30.5 pg (25.0-35.0); MCHC 32.9 g/dL (31.0-37.0); MCV 92.5 fL (80.0-100.0); Mean Platelet Volume 7.8; Monocytes # (A) 0.4 k/uL (0-1.0); Monocytes % (A) 5 %; Neutrophils # (A) 5.6 k/uL (1.3-7.7); Neutrophils % (A) 73 %; Platelet Count 369 k/uL (150-450); RBC 4.69 m/uL (3.80-5.40); RDW 12.5 % (11.5-15.5); WBC 7.8 k/uL (3.8-10.6)
[2024-01-26] MEDS: ACETAMINOPHEN IV (For NPO) 1,000 MG in EMPTY BAG 1 BAG IVPB STA (10:09)
[2024-01-26 10:15] LABS: ALT 12 U/L (4-34); AST 20 U/L (14-36); African American GFR (CKD) >90 (>60 ml/min/1.73 sqM); Albumin 5.2 g/dL (3.5-5.0); Alkaline Phosphatase 73 U/L (38-126); Anion Gap 8 mmol/L; Blood Urea Nitrogen 11 mg/dL (7-17); Calcium 10.3 mg/dL (8.4-10.2); Carbon Dioxide 23 mmol/L (22-30); Chloride 109 mmol/L (98-107); Glucose 99 mg/dL (74-99); Non-African American GFR(CKD) >90 (>60 ml/min/1.73 sqM); Potassium 4.5 mmol/L (3.5-5.1); Sodium 140 mmol/L (137-145); Total Bilirubin 0.6 mg/dL (0.2-1.3); Total Protein 8.4 g/dL (6.3-8.2)
--- NOTE | 2024-01-26 10:17 | XR ---
2 view chest HISTORY: Weakness COMPARISON: 02/16/2015 TECHNIQUE: PA and lateral views chest obtained. FINDINGS: The lungs are clear of consolidative, interstitial or masslike opacity. There is hyperinflation of eva ngs and flattening the diaphragms consistent with COPD. There is no pleural effusion, pleural thickening or pneumothorax. The heart, pulmonary vasculature, mediastinum and oma are within normal limits. The osseous structures and soft tissues of the thorax are intact. IMPRESSION: 1. No acute cardiopulmonary disease. 2. COPD. [facility], , 01/26/2024 10:15 AM
[2024-01-26] MEDS ORDERED: NALOXONE 0.4 MG/ML 1 ML VIAL IV PRN (12:46)
[2024-01-26] MEDS ORDERED: ONDANSETRON 4 MG/2 ML VIAL IVP PRN (12:46)
[2024-01-26] MEDS ORDERED: LORazepam 2 MG/ML INJ IV PRN (12:48)
[2024-01-26] MEDS: GABAPENTIN 100 MG CAP PO SCH (13:01)
[2024-01-26] MEDS: SODIUM CHLORIDE 0.9% 1,000 ML IV SCH (13:02)
[2024-01-26] MEDS: KETOROLAC 15 MG/ML 1 ML VIAL IVP PRN (13:04)
[2024-01-26] MEDS ORDERED: CYCLOBENZAPRINE 10 MG TAB PO PRN (17:07)
[2024-01-26] MEDS ORDERED: ONDANSETRON 4 MG TAB PO PRN (17:07)
--- NOTE | 2024-01-26 19:10 | CT ---
EXAMINATION TYPE: CT soft tissue neck wo con DATE OF EXAM: 01/26/2024 6:45 PM COMPARISON: Recent CT neck study dated 01/08/2024.. CLINICAL INDICATION: Female, 53 years old with history of tongue lesion?; PHH, Left side facial swell ing and pain from left eye down to left side of neck x 1 day 1. TECHNIQUE: Standard enhanced CT of the neck. Axial sections with coronal and sagittal reformats were obtained. CT DLP: 290.1 mGycm, Automated exposure control for dose reduction was used. FINDINGS: Brain: Visualized portions are grossly unremarkable. Orbits: Unremarkable Sinuses: Mucosal thickening of the left maxillary sinus with air-fluid level suggesting acute etiolog y. Scattered ethmoid air cell mucosal thickening. Spaces of the neck: Clear and symmetric. Musculoskeletal: No acute osseous pathology. Cervical spine degenerative changes. Lymph nodes: Multiple nonenlarged lymph nodes are seen along both anterior chains of the neck. Vascular structures: Not well evaluated given lack of IV contrast. Thoracic Inlet/airway: Airway is p atent. The lung apices are clear. Soft tissues/Thyroid: Thyroid and remainder of the soft tissues are unremarkable. Other: none. Partially visualized Emphysema in the lung apices. IMPRESSION 1. No evidence for a significant acute abnormality in the neck. 2. Paranasal sinus disease as above. [facility], , 01/26/2024 7:08 PM
[2024-01-26] MEDS: PANTOPRAZOLE 40 MG TABLET PO SCH (22:04)
[2024-01-26] MEDS: MELOXICAM 7.5 MG TAB PO SCH (22:05)
[2024-01-26] MEDS: NON FORMULARY DRUG (Buprenorphine Hcl/Naloxone Hcl [Suboxone 4 Mg-1 Mg Sl Film] 1 EACH Fil SUBLINGUAL SCH (22:06)
[2024-01-26] MEDS: ALPRAZolam 1 MG TAB PO SCH (22:09)
[2024-01-27 07:24] VITALS: BP 108/72; PULSE 72; RESP 16; TEMP 97.4
[2024-01-27] MEDS: ALBUTEROL HFA INHALER INHALATION PRN (08:15)
[2024-01-27] MEDS: CYANOCOBALAMIN 500 MCG TAB PO SCH (08:43)
[2024-01-27] MEDS ORDERED: ETODOLAC 400 MG TAB PO SCH (21:00)
--- NOTE | 2024-01-28 04:14 | HP ---
HISTORY AND PHYSICAL CHIEF COMPLAINT: Pain in the tongue, face, and neck. 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 She is definitely hypochondriacal. She is constantly complaining of various symptoms; pain, depression, and shortness of breath. She presented to the emergency room with pain and swelling in her tongue, neck, and in her chest. She is convinced that she has amyloidosis. Her tongue is somewhat abnormal in appearance. She has apparently been going around to different doctors including Ear, Nose, Throat doctor in [place]. She has been given no definite diagnoses. REVIEW OF SYSTEMS: Otherwise unremarkable. She has had no fever, chills, headache, chest pain, shortness of breath, abdominal pain, nausea, vomiting, melena, hematochezia, renal failure, hematuria, frequency, urgency, etc. PAST MEDICAL HISTORY: Otherwise unremarkable or noncontributory. FAMILY HISTORY: Otherwise unremarkable or noncontributory. PERSONAL AND SOCIAL HISTORY: Otherwise unremarkable or noncontributory. PHYSICAL EXAMINATION: Her tongue does seem to have a somewhat glossy and atrophic appearance to the mucosa. Lymph nodes intact and not enlarged. IMPRESSION: 1. Pain in the neck and tongue area. 2. Chronic obstructive pulmonary disease. 3. History of depression. PLAN: 1. Bed rest. 2. IV fluids. 3. CT of the tongue and neck. MMODL / IJN: [id number] /
--- NOTE | 2024-01-28 11:29 | DS ---
DISCHARGE SUMMARY CHIEF COMPLAINT: Pain in the tongue and neck. HISTORY OF PRESENT ILLNESS AND PHYSICAL EXAM: Details of this lady's history and physical can be found in the initial workup. LABORATORY STUDIES: While she was in the hospital, she had laboratory studies, details of which could be found in the laboratory section of her chart. COURSE IN HOSPITAL: After admission, she was placed on bedrest and started on intravenous fluids and underwent a CT of the tongue and neck, which was normal. It was felt that she did not need to be in the hospital any longer and that she could go home and be worked up further as an outpatient. FINAL DIAGNOSES: 1. Pain and swelling in the tongue and neck. 2. Chronic obstructive pulmonary disease. 3. History of narcotic abuse. OPERATIONS: None. CONSULTATION: None. DESTINY / WILFREDO: [id number] /
== END 2024-01-27 12:32 | disposition home or self-care (01) ==
LOC: EC 08:54 → 6NMEDSUR 12:47
PROVIDERS: ADMIT Family Medicine; ATTEND Family Medicine
DX: R22.1 Localized swelling, mass and lump, neck (principal); K14.6 Glossodynia; M54.2 Cervicalgia; M79.602 Pain in left arm; J44.9 Chronic obstructive pulmonary disease, unspecified; F31.9 Bipolar disorder, unspecified; F90.9 Attention-deficit hyperactivity disorder, unspecified type; F17.200 Nicotine dependence, unspecified, uncomplicated; K21.9 Gastro-esophageal reflux disease without esophagitis; R63.30 Feeding difficulties, unspecified; Z79.51 Long term (current) use of inhaled steroids; Z88.2 Allergy status to sulfonamides
CPT/HCPCS: 96376 ×3; 96361; 96374; 96375; 99285; 36415; 94640; 93005; 80053; 83735; 84484; 85025; 71046; 70490; G0378 ×2; J2060; J2405; J0131; J1885 ×2

== ENCOUNTER → 2024-02-14 | Outpatient (CLI) | payer OTHER ==
--- NOTE | 2024-02-18 10:38 | MM ---
Reason for Exam: Screening (asymptomatic). Last mammogram was performed 3 year(s) and 2 month(s) ago. Patient History: Menarche at age 13. First Full-Term at age 17. Postmenopausal. Risk Values: Emily 5 year model risk: 0.8%. NCI Lifetime model risk: 7.0%. Prior Study Comparison: 12/28/2020 Bilateral Screening Mammogram, [facility]. Tissue Density: There are scattered areas of fibroglandular density. Findings: Analyzed By CAD. Right breast: There is no suspicious group of microcalcifications or new suspicious mass. Left breast: There is no suspicious group of microcalcifications or new suspicious mass. Overall Assessment: Negative, BI-RAD 1 Management: Screening Mammogram of both breasts in [address] [facility] will attempt to contact patient to return for supplemental views and ultrasound if indicated. Patient should continue monthly self-breast exams. A clinical breast exam by your physician is recommended on an annual basis. This exam should not preclude additional follow-up of suspicious palpable abnormalities. Note on Emily scores and lifetime risk: 1. A Emily score greater than 3% is considered moderate risk. If this is the case, consider specialist referral to assess eligibility for a risk reducing agent. 2. If overall lifetime risk for the development of breast cancer is 20% or higher, the patient may qualify for future screening with alternating mammogram and breast MRI. [facility], , 02/18/2024 10:32 AM. Electronically signed and approved by: Samir Duff DO
== END | disposition home or self-care (01) ==
LOC: RADMAMWWP 08:46
PROVIDERS: ATTEND Family Medicine
DX: Z12.31 Encounter for screening mammogram for malignant neoplasm of breast (principal); Z78.0 Asymptomatic menopausal state; R92.323 Mammographic fibroglandular density, bilateral breasts
CPT/HCPCS: 77067

== ENCOUNTER → 2024-06-06 | Outpatient (CLI) | payer OTHER ==
--- NOTE | 2024-06-06 17:49 | US ---
"EXAMINATION TYPE: US pelvic complete DATE OF EXAM: 06/06/2024 COMPARISON: NONE CLINICAL INDICATION: Female, 53 years old with history of R10.2 PELVIC AND PERINEAL PAIN N81.4 PELV M SCL WST; TECHNIQUE: Transabdominal (TA). Transabdominal grayscale sonographic images of the pelvis were acquired. Transvaginal sonographic im ages were medically necessary to better assess the following anatomy: FINDINGS: EXAM MEASUREMENTS: Pt refused TV Uterus: 6.6x3.6x4.3 cm Endometrial Stripe: 0.9 cm Right Ovary: Not visualized due to bowel gas. Left Ovary: Not visualized due to bowel gas. 1. Uterus: Anteverted wnl 2. Endometrium: wnl 3. Right Ovary: Not visualized with confidence 4. Left Ovary: Obscured by overlying bowel gas 5. Bilateral Adnexa: Rt Adnexa: ? Large cyst within internal daughter cyst: 5.9x5.0x4.5cm. Correlate with beta hCG. Ectopic is not excluded. Other etiologies considered, O-rads 4, intermediate risk for neoplasm 6. Posterior cul-de-sac: wnl IMPRESSION: 1. Cysts within the right adnexa. Differential diagnosis includes ectopic . Correlation with beta-hCG is recommended. Follow-up is recommended. O-RADS 2021 [email or web address] A Yellow level critical message alert has been initiated for Minh Davidson MD via the [employer] | Critical Results System on 06/06/2024 5:45 PM. This message alert has been sent to Minh Davidson MD via the preferences provided by the clinician for the receipt of Radiology Critical Fi ndings. Message ID [id number]. [facility], , 06/06/2024 5:47 PM"
== END | disposition home or self-care (01) ==
LOC: RADUSWWP 15:53
PROVIDERS: ATTEND Family Medicine
DX: N83.8 Other noninflammatory disorders of ovary, fallopian tube and broad ligament (principal); N81.84 Pelvic muscle wasting; N93.9 Abnormal uterine and vaginal bleeding, unspecified
CPT/HCPCS: 76856